=== PATIENT | female | born 1950 | race American Indian/Alaskan Native ===

== ENCOUNTER 2018-02-23 14:38 | Emergency (ER) | payer MEDICARE, OTHER ==
[2018-02-23 14:38] VITALS: BMI 26.8
[2018-02-23 15:01] VITALS: BP 128/85; PULSE 86; TEMP 98.4; O2SAT 96
[2018-02-23] MEDS ORDERED: Albuterol-Ipratrop 3 mg / 0.5 (3 ml) UD IH STA (15:35)
[2018-02-23] MEDS ORDERED: Albuterol 0.083% Inhal Sol (2.5 mg/3 mL) UD IH STA (15:35)
[2018-02-23 15:43] VITALS: RESP 19
--- NOTE | 2018-02-23 15:53 | C.PDOC ---
History Of Present Illness 67 year old female, whose past medical history includes asthma, presents to the ED for evaluation of shortness of breath, productive cough, headache and wheezing which began several days ago. Patient has been using albuterol and symb icort twice a day without significant relief. Patient was evaluated at urgent care center earlier today. During the time, patient had pulse oxygen level of 91% and was short of breath. She was given nebulizer treatment in office and advised to present to the ED for further evaluation. Patient states her symptoms have improved after the nebulizer treatment, and her oxygenation level is 96% in the ED. Patient underwent a CXR in office, which she was told was negative and presents to the ED with a copy on CD. Patient denies fever, chills. Patient denies history of smoking, or previous intubation. Patient states her most recent course of PRednisone was 3 months ago. Time Seen by Provider: 02/23/18 15:21 Chief Complaint (Nursing): Shortness Of Breath History Per: Patient History/Exam Limitations: no limitations Onset/Duration Of Symptoms: Days Current Symptoms Are (Timing): Better Current Respiratory Medications: See Home Med List Associated Symptoms: Productive Cough. denies: Fever, Chills Additional History Per: Patient Past Medical History Reviewed: Historical Data, Nursing Documentation, Vital Signs Vital Signs: Last Vital Signs Temp 98.4 F 02/23/18 14:56 Pulse 86 02/23/18 14:56 Resp 19 02/23/18 15:27 BP 128/85 02/23/18 14:56 Pulse Ox 96 02/23/18 15:27 - Medical History PMH: Anemia, Asthma, HTN Denies: Chronic Kidney Disease Surgical History: Back Surgery Denies: Pacemaker Family History: States: Unknown Family Hx - Social History Hx Alcohol Use: No Hx Substance Use: No - Immunization History Hx Tetanus Toxoid Vaccination: No Hx Influenza Vaccination: Yes Hx Pneumococcal Vaccination: Yes Review Of Systems Constitutional: Negative for: Fever, Chills Respiratory: Positive for: Cough, Shortness of Breath, Sputum, Wheezing Neurological: Positive for: Headache Physical Exam - Physical Exam Appears: Non-toxic, No Acute Distress Skin: Normal Color, Warm, Dry Head: Atraumatic, Normacephalic Eye(s): bilateral: Normal Inspection Oral Mucosa: Moist Neck: Supple Chest: Symmetrical, No Deformity, No Tenderness Cardiovascular: Rhythm Regular, No Murmur Respiratory: No Rales, No Rhonchi, Wheezing (diffuse, inspiratory and expiratory ) Extremity: Normal ROM, Capillary Refill (less than 2 seconds ) Neurological/Psych: Oriented x3, Normal Speech, Normal Cognition ED Course And Treatment - Laboratory Results Result Diagrams: 02/23/18 16:04 02/23/18 16:04 Lab Interpretation: No Acute Changes ECG: Interpreted By Me ECG Rhythm: Sinus Rhythm, Nonspecific Changes (T wave changes) O2 Sat by Pulse Oximetry: 96 (on nebulizer ) Pulse Ox Interpretation: Normal - Radiology CXR: Viewed By Me, Read By Radiologist CXR Interpretation: Yes: No Acute Disease Progress Note: Chest XR CD copy was reviewed in the ED. CXR is indicative of right and left lower lobe infiltrate/ atelectasis. Will order repeat CXR to confirm. Bloodwork, CXR, EKG ordered and reviewed. Albuterol INH and Prednisone PO given. Reevaluation Time: 17:30 Reassessment Condition: Improved (Lungs clean and patient feels much better.) Disposition Counseled Patient/Family Regarding: Studies Performed, Diagnosis, Need For Followup, Rx Given - Disposition Referrals: Hermes Núñez MD [Staff Provider] - Disposition: HOME/ ROUTINE Disposition Time: 17:31 Condition: IMPROVED Prescriptions: Prednisone 50 mg PO DAILY #4 tab Instructions: Asthma in Adults Forms: [facility] (Austrian) - Clinical Impression Clinical Impression: Exacerbation of asthma - Scribe Statement The provider has reviewed the documentation as recorded by the Scribe (Corinna Brizuela) Provider Attestation: All medical record entries made by the Scribe were at my direction and personally dictated by me. I have reviewed the chart and agree that the record accurately reflects my personal performance of the history, physical exam, medical decision making, and the department course for this patient. I have also personally directed, reviewed, and agree with the discharge instructions and disposition.
[2018-02-23] MEDS ORDERED: Albuterol 0.083% Inhal Sol (2.5 mg/3 mL) UD ONE (16:04)
[2018-02-23] MEDS ORDERED: Albuterol-Ipratrop 3 mg / 0.5 (3 ml) UD ONE (16:04)
[2018-02-23 16:10] LABS: BASO # 0.1 K/uL (0.0-0.2); BASO % 0.7 % (0.0-2.0); EOS # 1.4 K/uL (0.0-0.7); EOS % 14.3 % (0.0-4.0); LYMPH # 2.6 K/uL (1.0-4.3); LYMPH % 26.5 % (20.0-40.0); MEAN CELL VOLUME 92.3 fL (81.0-99.0); MEAN CORPUSCULAR HEMOGLOBIN 31.1 pg (27.0-31.0); MEAN CORPUSCULAR HGB CONC 33.7 g/dL (33.0-37.0); MEAN PLATELET VOLUME 8.5 fL (7.2-11.7); MONO # 0.4 K/uL (0.0-0.8); MONO % 4.6 % (0.0-10.0); NEUT # 5.2 K/uL (1.8-7.0); NEUT % 53.9 % (50.0-75.0); NRBC % 0.1 % (0.0-2.0); RBC 4.5 Mil/uL (3.80-5.20); RED CELL DISTRIBUTION WIDTH 13.2 % (11.5-14.5); WHITE BLOOD COUNT 9.7 K/uL (4.8-10.8)
[2018-02-23 16:38] LABS: BLOOD UREA NITROGEN 9 mg/dL (7-17); CALCIUM 9.8 mg/dl (8.6-10.4); GFR NON-AFRICAN AMERICAN > 60
[2018-02-23 16:39] LABS: ALB/GLOB RATIO 1.3 (1.0-2.1); ALT/SGPT 27 U/L (9-52); AST/SGOT 57 U/L (14-36)
--- NOTE | 2018-02-23 16:48 | RAD ---
Date of service: 02/23/2018 HISTORY: cough COMPARISON: No prior. TECHNIQUE: Chest PA and lateral FINDINGS: LUNGS: No active pulmonary disease. PLEURA: No significant pleural effusion identified. No pneumothorax apparent. CARDIOVASCULAR: No aortic atherosclerotic calcification present. Normal cardiac size. No pulmonary vascular congestion. OSSEOUS STRUCTURES: No significant abnormalities. VISUALIZED UPPER ABDOMEN: Normal. OTHER FINDINGS: None. IMPRESSION: No active disease.
--- NOTE | 2018-02-24 18:35 | CARD ---
APPROVED REPORT Date of service: 02/23/2018 EKG Measurement Heart [id number] <Conclusion> Normal sinus rhythm Nonspecific T wave abnormality Abnormal ECG
== END 2018-02-23 17:49 | disposition home or self-care (01) ==
LOC: C.ER 14:38
DX: J45.901 Unspecified asthma with (acute) exacerbation (principal); I10 Essential (primary) hypertension